=== PATIENT | male | born 1950 | race African-American/Black ===

== ENCOUNTER 2017-01-22 15:46 | Emergency (ER) | payer MEDICARE, OTHER ==
[~2017-01-22] VITALS: Ht 172.7 cm; Wt 63.5 kg
[~2017-01-22 15:46] MED LIST: CIPRO500 MG PO; CIPROFLOXACIN500 M2 ORAL; MACROBID100 MG ORAL; PHENAZOPYRIDIN200 MG ORAL
[2017-01-22 15:49] VITALS: BP 148/81
[2017-01-22] MEDS ORDERED: Ketorolac 60mg Inj IM ONE (16:45)
--- NOTE | 2017-01-22 17:08 | Emergency Room Report ---
History of Present Illness General Chief Complaint: Back Pain-No Injury Source: Patient, Medical Record Present Illness HPI 66 YO Male presents to the ED c/o bilateral lower back pain 8/10 in severity with radiation upward into the bilateral shoulder blade areas x 1 day. pt. reports exacerbation with movement, and light touch. denies recent trauma/fall or spinal procedures. denies fevers, chills, night sweats, or hx of cancer. pt. describes pain as constant, denies midline spinal pain. pt. denies appreciable heavy lifting. denies abdominal pain, MENG, neck pain or stiffness. Denies hematuria, dysuria, or hx of stones. Denies numbness tingling or loss of sensation or gross motor movements of the extremities, incontinence of bowel or bladder. Denies CP, Palpitations, LOC, AMS, dizziness, Changes in Vision, Sensation, paresthesias, or a sudden severe headache. Allergies: Coded Allergies: No Known Allergies (Unverified , 09/02/14) Patient History Past Medical History: see triage record Past Surgical History: none Pertinent Family History: none Immunizations: UTD Reviewed Nursing Documentation: PMH: Agreed, PSxH: Agreed Nursing Documentation-PMH Past Medical History: No History, Except For Hx Dialysis: No - Urinary retention turp 2012 Review of Systems All Other Systems: negative except mentioned in HPI Physical Exam Vital Signs Date Time Temp Pulse Resp B/P (MAP) Pulse Ox O2 Delivery O2 Flow Rate FiO2 01/22/17 15:49 97.3 62 18 148/81 96 Room Air Sp02 EP Interpretation: reviewed, normal General Appearance: no apparent distress, alert, GCS 15, non-toxic Head: normocephalic, atraumatic Eyes: bilateral eye normal inspection, bilateral eye PERRL ENT: hearing grossly normal, normal voice Neck: full range of motion, no bony tend Respiratory: chest non-tender, lungs clear, normal breath sounds, speaking full sentences Cardiovascular #1: regular rate, rhythm Gastrointestinal: non tender, soft Rectal: deferred Genitourinary: normal inspection, no CVA tenderness Musculoskeletal: back normal, gait/station normal, normal range of motion, tender - superficial ttp to the thoracic and lumbar paraspinal muscles, no midline ttp, FROM, no erythema, no spinous process ttp, no obvious deformity, pt. is ambulatory. pt. NVI Neurologic: alert, oriented x3, responsive, motor strength/tone normal, sensory intact, normal gait, speech normal Skin: normal color, no rash, warm/dry, well hydrated Medical Decision Making PA Attestation Dr. Michelle is my supervising Physician whom patient management has been discussed with. Diagnostic Impression: Primary Impression: Back pain Qualified Codes: M54.5 - Low back pain ER Course 66 YO Male presents to the ED c/o bilateral lower back pain 8/10 in severity with radiation upward into the bilateral shoulder blade areas x 1 day. pt. reports exacerbation with movement, and light touch. denies recent trauma/fall or spinal procedures. denies fevers, chills, night sweats, or hx of cancer. pt. describes pain as constant, denies midline spinal pain. pt. denies appreciable heavy lifting. denies abdominal pain, MENG, neck pain or stiffness. Denies hematuria, dysuria, or hx of stones. Denies numbness tingling or loss of sensation or gross motor movements of the extremities, incontinence of bowel or bladder. Denies CP, Palpitations, LOC, AMS, dizziness, Changes in Vision, Sensation, paresthesias, or a sudden severe headache. Ddx considered but are not limited to Fracture, dislocation, contusion, epidural abscess, Sprain/Strain/Spasm, AAA, dissection Vital signs: are WNL, pt. is afebrile H&PE are most consistent with back muscle strain due to superficial TTP illicits his symptoms, and movement exacerbation of his symptoms. I do not suspect acute aortic pathology, or infection at this time. HPI does not suggest stones. ORDERS: none required at this time. ED INTERVENTIONS: -Soma PO -Toradol IM d/w pt. conservative treatment, and to follow up with a primary care provider. pt given a list of primary care clinics for follow up. d/w pt. to return to the ED with worsening or new symptoms. DISCHARGE: At this time pt. is stable for d/c to home. Will provide printed patient care instructions, and any necessary prescriptions. Care plan and follow up instructions have been discussed with the patient prior to discharge. Last Vital Signs Date Time Temp Pulse Resp B/P (MAP) Pulse Ox O2 Delivery O2 Flow Rate FiO2 01/22/17 15:49 97.3 62 18 148/81 96 Room Air Disposition: HOME, SELF-CARE Condition: Stable Scripts Methocarbamol* (ROBAXIN-750*) 750 Mg Tablet 750 MG PO QID, #28 TAB 0 Refills Prov: Ricarda العلي 01/22/17 Ibuprofen* (MOTRIN*) 600 Mg Tablet 600 MG ORAL THREE TIMES A DAY, #20 TAB 0 Refills Prov: Ricarda العلي 01/22/17 Referrals: NOT CHOSEN IPA/MD,REFERRING (PCP) Departure Forms: Return to Work Return to Work Date: Jan 26, 2017 Work Restrictions: No Heavy Lifting, No Prolonged Standing Return to Full Activity: Feb 01, 2017 Patient Instructions: Back Pain, Adult Additional Instructions: Take medications as directed. Follow up with a Primary Care Provider in 3-5 days, even if your symptoms have resolved. --Please review list of primary care clinics, if you do not already have a primary care provider Return sooner to ED if new symptoms occur, or current symptoms become worse. Do not drink alcohol, drive, or operate heavy machinery while taking Muscle Relaxer as this may cause drowsiness. - Please note that this Emergency Department Report was dictated using [employer] carving lathe operator technology software, occasionally this can lead to erroneous entry secondary to interpretation by the dictation equipment. Ricarda العلي Jan 22, 2017 17:08
[2017-01-22] MEDS ORDERED: ROBAXIN-750750 MG PO (17:09)
[2017-01-22] MEDS ORDERED: IBUPROFEN600 MG ORAL (17:09)
[2017-01-22 17:17] VITALS: BP 148/81
== END 2017-01-22 17:34 | disposition home or self-care (01) ==
LOC: EMR 16:30
DX: M54.5 Low back pain (principal)
CPT/HCPCS: 96372; 99284

== ENCOUNTER 2017-02-06 13:12 | Emergency (ER) | payer MEDICARE, OTHER ==
[~2017-02-06] VITALS: Ht 172.7 cm; Wt 63.5 kg
[~2017-02-06 13:12] MED LIST changes: +IBUPROFEN600 MG ORAL; +ROBAXIN-750750 MG PO
[2017-02-06] MEDS ORDERED: VENTOLIN HFA18 GM INH (13:32)
[2017-02-06] MEDS ORDERED: SPIRIVA18 MCG INH (13:32)
[2017-02-06] MEDS ORDERED: Isentress 400mg tab ORAL SCH (13:45)
--- NOTE | 2017-02-06 13:50 | Emergency Room Report ---
History of Present Illness General Chief Complaint: General Complaint Source: Patient (CARLOZ DEAN) Present Illness HPI The patient is a 66 old male presenting for needle stick. He states that he was taking out trash at a homeless detention in [place] when he felt a sharp sensation to the right middle finger. The patient states that he was wearing gloves. He took off the gloves and did not see any blood or redness to the finger. He washed the area with soap and water. This occurred at approximately 5:30 AM this morning. He denies any current pain or other symptoms. He is concerned about gomez hepatitis and HIV due to this being a high risk detention. (CARLOZ DEAN) Allergies: Coded Allergies: No Known Allergies (Unverified , 09/02/14) Patient History Past Medical History: see triage record Pertinent Family History: none Reviewed Nursing Documentation: PMH: Agreed, PSxH: Agreed (CARLOZ DEAN) Nursing Documentation-PMH Hx COPD: Yes Hx Dialysis: No - Urinary retention turp 2011 (CARLOZ DEAN) Review of Systems All Other Systems: negative except mentioned in HPI (CARLOZ DEAN) Physical Exam Vital Signs Date Time Temp Pulse Resp B/P (MAP) Pulse Ox O2 Delivery O2 Flow Rate FiO2 02/06/17 13:19 78.1 78 16 122/79 97 Room Air Sp02 EP Interpretation: reviewed, normal General Appearance: no apparent distress, alert, GCS 15, non-toxic Head: normocephalic, atraumatic Eyes: bilateral eye normal inspection, bilateral eye PERRL ENT: hearing grossly normal, normal pharynx, no angioedema, normal voice Neck: full range of motion, supple/symm/no masses Respiratory: chest non-tender, lungs clear, normal breath sounds, speaking full sentences Cardiovascular #1: normal peripheral pulses, no edema, no murmur, no rub, bradycardia Musculoskeletal: back normal, gait/station normal, normal range of motion, non- tender Neurologic: alert, oriented x3, responsive, motor strength/tone normal, sensory intact, speech normal Psychiatric: judgement/insight normal, memory normal, mood/affect normal, no suicidal/homicidal ideation Skin: normal color, no rash, warm/dry, well hydrated, other - Right 3rd digit: No visible injury. Non tender Lymphatic: no adenopathy (CARLOZ DEAN) Medical Decision Making [place] Attestation Dr. Michelle is my supervising physician. Patient management was discussed with my supervising physician (CARLOZ DEAN) Medicare Attestation Nadege Borrero MD hereby attest that the medical record entry accurately reflects signatures/notations that I made in my capacity as MD when I treated/ diagnosed the above listed Medicare beneficiary. I attest that this information is true, accurate and complete to the best of my knowledge. I understand that any falsification, omission, or concealment of material fact may subject me to administrative, civil, or criminal liability. This patient warrants hospital admission for extreme of age and has a condition that cannot be treated as outpatient. (Nadege Jones M.D.) Diagnostic Impression: Primary Impression: Needle stick injury ER Course The patient is a 66 old male presenting for needle stick. Differential diagnosis considered not limited to: Puncture wound, HIV exposure, hepatitis exposure, cellulitis, among others Upon having standard labs drawn for needle stick protocol, the patient has become bradycardic and somewhat unresponsive. This lasted for approximately 3 minutes. He was placed on a monitored bed at that point. Physical exam: The patient is bradycardic ranging from the mid 40s to mid 50s. Hypotensive during the brief period of unresponsiveness. Cardiac: The patient is bradycardic. No MRG. Distal pulses 2+ Lungs are clear to auscultation bilaterally Abdomen is soft and nontender Skin is warm and dry All labs are unremarkable. No anemia. No hypoglycemia. No electrolyte abnormality. Cardiac markers essentially negative EKG shows sinus bradycardia. Chest x-ray unremarkable The patient is given IV fluids and time to rest. He is feeling significantly better. He is alert and oriented x3 at this time. He is given food and drink and is monitored. After it is established that the patient is stable, he is discharged home and will be prophylactically treated per needle stick protocol. He needs to followup with his primary doctor within 3 days. ER precautions are given Laboratory Tests Test 02/06/17 14:12 White Blood Count 8.1 K/UL (4.8-10.8) Red Blood Count 4.62 M/UL (4.70-6.10) L Hemoglobin 14.8 G/DL (14.2-18.0) Hematocrit 44.9 % (42.0-52.0) Mean Corpuscular Volume 97 FL (80-99) Mean Corpuscular Hemoglobin 32.1 PG (27.0-31.0) H Mean Corpuscular Hemoglobin Concent 33.0 G/DL (32.0-36.0) Red Cell Distribution Width 12.1 % (11.6-14.8) Platelet Count 203 K/UL (150-450) Mean Platelet Volume 7.1 FL (6.5-10.1) Neutrophils (%) (Auto) 60.3 % (45.0-75.0) Lymphocytes (%) (Auto) 28.3 % (20.0-45.0) Monocytes (%) (Auto) 8.4 % (1.0-10.0) Eosinophils (%) (Auto) 1.8 % (0.0-3.0) Basophils (%) (Auto) 1.2 % (0.0-2.0) Sodium Level 140 MMOL/L (136-145) Potassium Level 3.9 MMOL/L (3.5-5.1) Chloride Level 106 MMOL/L (98-107) Carbon Dioxide Level 27 MMOL/L (21-32) Anion Gap 7 mmol/L (5-15) Blood Urea Nitrogen 15 mg/dL (7-18) Creatinine 1.3 MG/DL (0.55-1.30) Estimate Glomerular Filtration Rate > 60 mL/min (>60) Glucose Level 114 MG/DL (74-106) H Calcium Level 9.0 MG/DL (8.5-10.1) Phosphorus Level 2.9 MG/DL (2.5-4.9) Total Bilirubin 0.3 MG/DL (0.2-1.0) Direct Bilirubin < 0.1 MG/DL (0.0-0.3) Aspartate Amino Transferase (AST) 13 U/L (15-37) L Alanine Aminotransferase (ALT) 15 U/L (12-78) Alkaline Phosphatase 71 U/L (46-116) Total Creatine Kinase 191 U/L (26-308) Creatine Kinase MB 2.1 NG/ML (0.0-3.6) Creatine Kinase MB Relative Index 1.0 Troponin I 0.000 ng/mL (0.000-0.056) Total Protein 7.3 G/DL (6.4-8.2) Albumin 3.8 G/DL (3.4-5.0) Globulin 3.5 g/dL Albumin/Globulin Ratio 1.1 (1.0-2.7) Hepatitis B Surface Antibody Pending Hepatitis C Antibody Pending HIV (1&2) Antibody Rapid Negative (NEGATIVE) Lab Results Impression All labs are unremarkable. No anemia. No hypoglycemia. No electrolyte abnormality. Cardiac markers essentially negative (CARLOZ DEAN P.A.) EKG Diagnostic Results EP Interpretation: Sinus bradycardia Rate: bradycardiac - 45 ST Segments: no acute changes ASA given to the pt in ED: No PA Scribe Text EKG was reviewed and read with my supervising physician. No acute ST segment changes are seen. Normal rate and rhythm. No acute changes. (CARLOZ DEAN P.A.) Chest X-Ray Diagnostic Results Chest X-Ray Diagnostic Results : Chest X-Ray Ordered: Yes # of Views/Limited/Complete: 1 View Indication: Other - syncope EP Interpretation: Yes PA Xray: Interpretation reviewed, by supervising MD, and agrees with findings. Interpretation: no consolidation, no effusion, no pneumothorax, no acute cardiopulmonary disease Impression: No acute disease Electronically Signed by: Carloz Dean PA-C (CARLOZ DEAN PFrancoiseAFrancoise) Last Vital Signs Date Time Temp Pulse Resp B/P (MAP) Pulse Ox O2 Delivery O2 Flow Rate FiO2 02/06/17 13:19 78.1 78 16 122/79 97 Room Air Status: improved (CARLOZ DEAN P.A.) Disposition: HOME, SELF-CARE Condition: Improved Scripts Emtricitabine/Tenofovir 200-300MG* (TRUVADA 200-300MG*) 1 Each Tablet 1 TAB ORAL DAILY, #2 TAB Prov: CARLOZ DEAN P.A. 02/06/17 Raltegravir (Isentress) 400 Mg Tablet 400 MG ORAL EVERY 12 HOURS, #5 TAB Prov: JENNIEANSARITHAY P.A. 02/06/17 CARLOZ DEAN P.A. Feb 06, 2017 13:50 Nadege Jones M.D. Feb 16, 2017 03:06
[2017-02-06 14:00] VITALS: BP 92/50
[2017-02-06 14:25] LABS: BASOPHILS % (AUTO) 1.2 % (0.0-2.0); EOSINOPHILS % (AUTO) 1.8 % (0.0-3.0); LYMPHOCYTES % (AUTO) 28.3 % (20.0-45.0); MEAN CORPUSCULAR HEMOGLOBIN 32.1 PG (27.0-31.0); MEAN CORPUSCULAR VOLUME 97 FL (80-99); MEAN PLATELET VOLUME 7.1 FL (6.5-10.1); MONOCYTES % (AUTO) 8.4 % (1.0-10.0); NEUTROPHILS % (AUTO) 60.3 % (45.0-75.0); PLATELET COUNT 203 K/UL (150-450); RED BLOOD COUNT 4.62 M/UL (4.70-6.10); RED CELL DISTRIBUTION WIDTH 12.1 % (11.6-14.8); WHITE BLOOD COUNT 8.1 K/UL (4.8-10.8)
[2017-02-06 14:35] LABS: ANION GAP 7 mmol/L (5-15); CARBON DIOXIDE 27 MMOL/L (21-32); CHLORIDE 106 MMOL/L (98-107); CREATININE 1.3 MG/DL (0.55-1.30); GLOMERULAR FILTRATION RATE > 60 mL/min (>60); POTASSIUM 3.9 MMOL/L (3.5-5.1); SODIUM 140 MMOL/L (136-145)
[2017-02-06 14:39] LABS: ALANINE AMINOTRANSFERASE 15 U/L (12-78); ALBUMIN/GLOBULIN RATIO 1.1 (1.0-2.7); ASPARTATE AMINO TRANSFERASE 13 U/L (15-37); BILIRUBIN,DIRECT < 0.1 MG/DL (0.0-0.3); PHOSPHORUS 2.9 MG/DL (2.5-4.9); TOTAL PROTEIN 7.3 G/DL (6.4-8.2)
[2017-02-06 14:51] LABS: CKMB 2.1 NG/ML (0.0-3.6)
[2017-02-06 15:20] VITALS: BP 127/74
[2017-02-06] MEDS ORDERED: ISENTRESS400 MG ORAL (15:23)
[2017-02-06] MEDS ORDERED: TRUVADA 200 MG1 EAC1 ORAL (15:23)
--- NOTE | 2017-02-07 08:41 | Diagnostic Imaging Report ---
Indication: SYNCOPE Technique: One view of the chest Comparison: none Findings: Lungs and pleural spaces are clear. Heart size is normal Impression: No acute process
--- NOTE | 2017-02-07 18:37 | Cardiology Report ---
APPROVED REPORT EKG Measurement Heart [id number] Sinus bradycardia Cannot rule out Anterior infarct, age undetermined Abnormal ECG
== END 2017-02-06 15:25 | disposition home or self-care (01) ==
LOC: EMR 13:30
DX: S60.442A External constriction of right middle finger, initial encounter (principal); W46.0XXA Contact with hypodermic needle, initial encounter; Y92.099 Unspecified place in other non-institutional residence as the place of occurrence of the external cause; Y99.0 Civilian activity done for income or pay
CPT/HCPCS: 36415; 71010; 80053; 80069; 80076; 82550; 82553; 82962; 84484; 85025; 86703; 86803; 87517; 93005; 96360; 99284

== ENCOUNTER 2017-05-13 15:54 | Emergency (ER) | payer OTHER, MEDICARE ==
[~2017-05-13] VITALS: Ht 172.7 cm; Wt 63.5 kg
[~2017-05-13 15:54] MED LIST changes: +ISENTRESS400 MG ORAL; +SPIRIVA18 MCG INH; +TRUVADA 200 MG1 EAC1 ORAL; +VENTOLIN HFA18 GM INH
--- NOTE | 2017-05-13 16:12 | Emergency Room Report ---
History of Present Illness General Chief Complaint: Upper Respiratory Illness Source: Patient, Medical Record Present Illness HPI 66 YO Male Presents to the ED c/O Cough, N/V/ Diarrhea x 3 days. subjective fevers and chills. denies blood in vomit of stool. reports 2 episodes of vomiting initially then loose stools. Reports hx of Emphysema and requests refill of Spiriva. Denies recent abx use. denies SOB, lower extremity edema, or productive cough. 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 Denies pain. Denies sore throat, ear pain, high fevers, lethargy, neck pain/stiffness, irritability, photophobia dehydration, N/V/D. Denies Cp, Palpitations, LOC, AMS, seizures, paresthesias, or changes in Hearing or vision, no Sudden severe MENG. Allergies: Coded Allergies: No Known Allergies (Unverified , 09/02/14) Patient History Past Medical History: see triage record Past Surgical History: none Pertinent Family History: none Immunizations: UTD Reviewed Nursing Documentation: PMH: Agreed, PSxH: Agreed Nursing Documentation-PMH Past Medical History: No History, Except For Hx COPD: Yes Hx Dialysis: No - Urinary retention turp 2012 Review of Systems All Other Systems: negative except mentioned in HPI Physical Exam Vital Signs Date Time Temp Pulse Resp B/P (MAP) Pulse Ox O2 Delivery O2 Flow Rate FiO2 05/13/17 15:59 98.5 71 18 134/78 97 Room Air 98.4 Sp02 EP Interpretation: reviewed, normal General Appearance: no apparent distress, alert, GCS 15, non-toxic Head: normocephalic, atraumatic ENT: hearing grossly normal, normal voice Neck: full range of motion Respiratory: chest non-tender, lungs clear, normal breath sounds, no rhonchi, no respiratory distress, no accessory muscle use, no wheezing, speaking full sentences Cardiovascular #1: regular rate, rhythm, no edema, normal capillary refill Gastrointestinal: normal bowel sounds, non tender, soft Rectal: deferred Genitourinary: normal inspection, no CVA tenderness Musculoskeletal: back normal, gait/station normal, normal range of motion, non- tender Neurologic: alert, oriented x3, responsive, motor strength/tone normal, sensory intact, speech normal, grossly normal Psychiatric: judgement/insight normal Skin: normal color, no rash, warm/dry, well hydrated Lymphatic: no adenopathy Medical Decision Making PA Attestation Dr. Hernández is my supervising Physician whom patient management has been discussed with. Diagnostic Impression: Primary Impression: Bronchitis Additional Impression: Vomiting and diarrhea ER Course 66 YO Male Presents to the ED c/O Cough, N/V/ Diarrhea x 3 days. subjective fevers and chills. denies blood in vomit of stool. reports 2 episodes of vomiting initially then loose stools. Reports hx of Emphysema and requests refill of Spiriva. Denies recent abx use. denies SOB, lower extremity edema, or productive cough. 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 Denies pain. Denies sore throat, ear pain, high fevers, lethargy, neck pain/stiffness, irritability, photophobia dehydration, N/V/D. Denies Cp, Palpitations, LOC, AMS, seizures, paresthesias, or changes in Hearing or vision, no Sudden severe MENG. Ddx considered but are not limited to URI, pneumonia, PE, strep pharyngitis, meningitis, Viral GE, dehydration Vital signs: Pt. is afebrile, the remaining VS are WNL H&PE are most consistent with URI- no meningeal signs, oropharynx is not involved, no evidence of bacterial infection at this time. ORDERS: none required at this time, the diagnosis is clinical ED INTERVENTIONS: None required at this time. DISCHARGE: At this time pt. is stable for d/c to home. Will provide printed patient care instructions, and any necessary prescriptions. Care plan and follow up instructions have been discussed with the patient prior to discharge. Last Vital Signs Date Time Temp Pulse Resp B/P (MAP) Pulse Ox O2 Delivery O2 Flow Rate FiO2 05/13/17 15:59 98.5 71 18 134/78 97 Room Air 98.4 Disposition: HOME, SELF-CARE Condition: Stable Scripts Dicyclomine Hcl* (DICYCLOMINE HCL*) 10 Mg Capsule 10 MG PO TID, #5 CAP Prov: Ricarda العلي P.Barb. 05/13/17 Ondansetron Odt* (ZOFRAN ODT*) 4 Mg Tab.rapdis 4 MG ORAL Q6H Y for Nausea & Vomiting, #10 TAB Prov: Ricarda العلي 05/13/17 Tiotropium [place]* (SPIRIVA*) 18 Mcg Cap.w.dev 1 PUFF INH DAILY, #1 EA Prov: Ricarda العلي 05/13/17 Codeine/Promethazine Hcl* (PROMETHAZINE-CODEINE SYRUP*) 118 Ml Syrup 5 ML ORAL Q6H Y for For Cough, #120 ML 0 Refills Prov: Ricarda العلي 05/13/17 Patient Instructions: Upper Respiratory Infection, Adult Additional Instructions: Take medications as directed. Follow up with a Primary Care Provider in 3-5 days, even if your symptoms have resolved. --Please review list of primary care clinics, if you do not already have a primary care provider Return sooner to ED if new symptoms occur, or current symptoms become worse. Do not drink alcohol, drive, or operate heavy machinery while taking Cough as this may cause drowsiness. - Please note that this Emergency Department Report was dictated using [employer] set up technology software, occasionally this can lead to erroneous entry secondary to interpretation by the dictation equipment. Ricarda العلي May 13, 2017 16:11
[2017-05-13] MEDS ORDERED: SPIRIVA18 MCG INH (16:37)
[2017-05-13] MEDS ORDERED: ZOFRAN ODT4 MG ORAL (16:37)
[2017-05-13] MEDS ORDERED: DICYCLOMINE HCL10 MG PO (16:37)
[2017-05-13] MEDS ORDERED: PROMETHAZINE-C118 M1 ORAL (16:37)
[2017-05-13 16:40] VITALS: BP 134/78
[2017-05-13 17:16] VITALS: BP 134/78
== END 2017-05-13 17:00 | disposition home or self-care (01) ==
LOC: EMR 16:30
DX: J40 Bronchitis, not specified as acute or chronic (principal); R19.7 Diarrhea, unspecified; R11.10 Vomiting, unspecified; J44.9 Chronic obstructive pulmonary disease, unspecified
CPT/HCPCS: 99284

== ENCOUNTER 2018-10-19 14:18 | Emergency (ER) | payer OTHER, MEDICARE ==
[~2018-10-19] VITALS: Ht 177.8 cm; Wt 63.5 kg
[~2018-10-19 14:18] MED LIST changes: +DICYCLOMINE HCL10 MG PO; +PROMETHAZINE-C118 M1 ORAL; +ZOFRAN ODT4 MG ORAL
[2018-10-19] MEDS ORDERED: UNOBMED (14:28)
--- NOTE | 2018-10-19 14:33 | NUR ---
ED Nurse Note: Pt from home came in due to Nausea, vomiting and diarrhea since last night. Pt also noted to be weak and sluggish. Per family member, pt had one episode of vomiting before going here. AAO x4, ambulates with assistance. Follows commands with no respiratory distress.
[2018-10-19 14:45] VITALS: BP 128/59
--- NOTE | 2018-10-19 14:53 | Emergency Room Report ---
History of Present Illness General Chief Complaint: Nausea, Vomiting, and Diarrhea Source: Patient Present Illness HPI Patient is a 67-year-old male presents after increased generalized weakness with associated nausea vomiting and diarrhea. Patient had been having associated chills. He reportedly had been vomiting multiple times. He had reportedly been having some diarrheal episodes. patient reportedly had been working last night and had been more somnolent since driving to the hospital. Allergies: Coded Allergies: No Known Allergies (Unverified , 09/02/14) Patient History Reviewed Nursing Documentation: PMH: Agreed; PSxH: Agreed Nursing Documentation-PMH Past Medical History: No History, Except For Hx COPD: Yes Hx Dialysis: No - Urinary retention turp 2011 Physical Exam Vital Signs Date Time Temp Pulse Resp B/P (MAP) Pulse Ox O2 Delivery O2 Flow Rate FiO2 10/19/18 14:23 99.7 93 18 121/67 (85) 95 Room Air Sp02 EP Interpretation: reviewed, normal General Appearance: normal inspection, alert, GCS 15, Chronically Ill Head: atraumatic ENT: normal ENT inspection, hearing grossly normal, normal voice Neck: normal inspection, full range of motion, supple, no bony tend Respiratory: normal inspection, normal breath sounds, no respiratory distress, no retraction, wheezing Cardiovascular #1: regular rate, rhythm, no edema Gastrointestinal: normal inspection, normal bowel sounds, non tender, soft, no guarding, no hernia Genitourinary: no CVA tenderness Musculoskeletal: normal inspection, back normal, normal range of motion Neurologic: normal inspection, alert, oriented x3, responsive, 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 Differential diagnosis include was not limited to gastroenteritis, myocardial infarction, CVA, myocarditis among others. Because of complexity of patient's case laboratory testing and imaging studies were ordered. Patient was noted to have some prior history of COPD. He initially was fairly lethargic.Patient was noted to have increased chest discomfort as well as headache. CT the head read by radiology showed no evidence of acute intracranial pathology. CT of the chest was ordered after d-dimer was positive.Patient was discussed with Dr. Lala at [facility] case #[id number]. After discussion with CT of the chest was performed which showed some evidence of left-sided infiltrate and emphysematous changes.Patient be transferred to [facility] for further evaluation and treatment. Labs Test 10/19/18 15:00 10/19/18 15:15 10/19/18 15:20 10/19/18 15:30 White Blood Count 14.5 K/UL (4.8-10.8) Red Blood Count 4.43 M/UL (4.70-6.10) Hemoglobin 14.2 G/DL (14.2-18.0) Hematocrit 42.7 % (42.0-52.0) Mean Corpuscular Volume 96 FL (80-99) Mean Corpuscular Hemoglobin 32.0 PG (27.0-31.0) Mean Corpuscular Hemoglobin Concent 33.1 G/DL (32.0-36.0) Red Cell Distribution Width 12.5 % (11.6-14.8) Platelet Count 176 K/UL (150-450) Mean Platelet Volume 6.3 FL (6.5-10.1) Neutrophils (%) (Auto) % (45.0-75.0) Lymphocytes (%) (Auto) % (20.0-45.0) Monocytes (%) (Auto) % (1.0-10.0) Eosinophils (%) (Auto) % (0.0-3.0) Basophils (%) (Auto) % (0.0-2.0) Sodium Level 136 MMOL/L (136-145) Potassium Level 3.7 MMOL/L (3.5-5.1) Chloride Level 104 MMOL/L (98-107) Carbon Dioxide Level 25 MMOL/L (21-32) Anion Gap 7 mmol/L (5-15) Blood Urea Nitrogen 11 mg/dL (7-18) Creatinine 1.3 MG/DL (0.55-1.30) Estimat Glomerular Filtration Rate > 60 mL/min (>60) Glucose Level 101 MG/DL (74-106) Calcium Level 9.1 MG/DL (8.5-10.1) Total Bilirubin 1.2 MG/DL (0.2-1.0) Direct Bilirubin 0.2 MG/DL (0.0-0.3) Aspartate Amino Transf (AST/SGOT) 13 U/L (15-37) Alanine Aminotransferase (ALT/SGPT) 12 U/L (12-78) Alkaline Phosphatase 68 U/L (46-116) Troponin I 0.000 ng/mL (0.000-0.056) Total Protein 6.9 G/DL (6.4-8.2) Albumin 3.5 G/DL (3.4-5.0) Globulin 3.4 g/dL Albumin/Globulin Ratio 1.0 (1.0-2.7) Lipase 56 U/L (73-393) Salicylates Level < 0.2 ug/mL (2.8-20) Acetaminophen Level < 2 MCG/ML (10-30) Urine Color Pale yellow Urine Appearance Clear Urine pH 8 (4.5-8.0) Urine Specific [place] 1.010 (1.005-1.035) Urine Protein Negative (NEGATIVE) Urine Glucose (UA) Negative (NEGATIVE) Urine Ketones 2+ (NEGATIVE) Urine Blood 1+ (NEGATIVE) Urine Nitrite Positive (NEGATIVE) Urine Bilirubin Negative (NEGATIVE) Urine Urobilinogen Normal MG/DL (0.0-1.0) Urine Leukocyte Esterase 2+ (NEGATIVE) Urine RBC 0-2 /HPF (0 - 0) Urine WBC 2-4 /HPF (0 - 0) Urine Squamous Epithelial Cells None /LPF (NONE/OCC) Urine Bacteria Few /HPF (NONE) Urine Opiates Screen Negative (NEGATIVE) Urine Barbiturates Screen Negative (NEGATIVE) Phencyclidine (PCP) Screen Negative (NEGATIVE) Urine Amphetamines Screen Negative (NEGATIVE) Urine Benzodiazepines Screen Negative (NEGATIVE) Urine Cocaine Screen Negative (NEGATIVE) Urine Marijuana (THC) Screen Negative (NEGATIVE) Lactic Acid Level 1.30 mmol/L (0.4-2.0) EKG Diagnostic Results Rate: normal Rhythm: NSR ST Segments: other - diffuse twave inversions Rhythm Strip Diag. Results EP Interpretation: yes Rhythm: NSR, no PVC's Last Vital Signs Date Time Temp Pulse Resp B/P (MAP) Pulse Ox O2 Delivery O2 Flow Rate FiO2 10/19/18 14:23 99.7 93 18 121/67 (85) 95 Room Air Status: unchanged Disposition: ADMITTED INPATIENT Condition: Stable Jorge Hernández MD Oct 19, 2018 14:53
--- NOTE | 2018-10-19 15:08 | NUR ---
ED Nurse Note: Collected blood specimen then sent.
--- NOTE | 2018-10-19 15:21 | NUR ---
ED Nurse Note: Urine specimen then sent.
[2018-10-19 15:28] LABS: HEMATOCRIT 42.7 % (42.0-52.0); HEMOGLOBIN 14.2 G/DL (14.2-18.0); MEAN CORPUSCULAR VOLUME 96 FL (80-99); PLATELET COUNT 176 K/UL (150-450); RED BLOOD COUNT 4.43 M/UL (4.70-6.10); RED CELL DISTRIBUTION WIDTH 12.5 % (11.6-14.8); WHITE BLOOD COUNT 14.5 K/UL (4.8-10.8)
--- NOTE | 2018-10-19 15:31 | NUR ---
ED Nurse Note: Collected lactic acid specimen and sent.
[2018-10-19 15:32] LABS: ANION GAP 7 mmol/L (5-15); BLOOD UREA NITROGEN 11 mg/dL (7-18); CALCIUM 9.1 MG/DL (8.5-10.1); CARBON DIOXIDE 25 MMOL/L (21-32); CHLORIDE 104 MMOL/L (98-107); CREATININE 1.3 MG/DL (0.55-1.30); POTASSIUM 3.7 MMOL/L (3.5-5.1); SODIUM 136 MMOL/L (136-145)
--- NOTE | 2018-10-19 15:33 | NUR ---
ED Nurse Note: Pt resports headcahe of 08/14. Dr Hernández notified and will order CT head.
[2018-10-19 15:43] LABS: ALANINE AMINOTRANSFERASE 12 U/L (12-78); ALBUMIN 3.5 G/DL (3.4-5.0); ALKALINE PHOSPHATASE 68 U/L (46-116); ASPARTATE AMINO TRANSFERASE 13 U/L (15-37); BILIRUBIN,TOTAL 1.2 MG/DL (0.2-1.0)
[2018-10-19 15:45] LABS: BILIRUBIN,DIRECT 0.2 MG/DL (0.0-0.3)
--- NOTE | 2018-10-19 15:45 | NUR ---
ED Nurse Note: Pt taken to CT.
[2018-10-19 15:46] LABS: APPEARANCE,URINE CLEAR; BILIRUBIN, URINE NEGATIVE (NEGATIVE); COLOR,URINE PALE YELLOW; GLUCOSE, URINE (UA) NEGATIVE (NEGATIVE); KETONES,URINE 2+ (NEGATIVE); LEUKOCYTE ESTERASE ,URINE 2+ (NEGATIVE); NITRITE,URINE POSITIVE (NEGATIVE); PH,URINE 8 (4.5-8.0); PROTEIN,URINE NEGATIVE (NEGATIVE); UROBILINOGEN,URINE NORMAL MG/DL (0.0-1.0)
--- NOTE | 2018-10-19 15:52 | NUR ---
ED Nurse Note: Pt came back from CT.
[2018-10-19] MEDS ORDERED: cefTRIAXone 1 GM in NS 55 ML IVPB ONE (16:15)
--- NOTE | 2018-10-19 16:24 | Diagnostic Imaging Report ---
Indications: Dizziness, headache Technique: Spiral acquisitions obtained through the brain. Angled axial and coronal 5 x 5 mm slices were reconstructed. Total dose length product 1333.86 mGycm. CTDI vol(s) 70.38 mGy. Dose reduction achieved using automated exposure control Comparison: None. Findings: No acute intracranial hemorrhage or edema. No mass effect nor midline shift. Normal vela-white differentiation. Normal size ventricles and extra axial CSF spaces. Visualized orbits and sinuses are unremarkable. The mastoids are clear. The calvarium is intact Impression: Negative The CT scanner at [facility] is accredited by the [employer] and the scans are performed using protocols designed to limit radiation exposure to as low as reasonably achievable to attain images of sufficient resolution adequate for diagnostic evaluation.
[2018-10-19] MEDS: Nitroglycerin Subl 0.4mg tab SL PRN ×3 (16:31→16:47)
[2018-10-19 16:40] VITALS: BP 108/71
--- NOTE | 2018-10-19 16:43 | NUR ---
ED Nurse Note: and pt are aware of hospital admission. took pt's valuables with her.
--- NOTE | 2018-10-19 16:50 | NUR ---
ED Nurse Note: Called RT for breathing treatment.
[2018-10-19] MEDS ORDERED: Albuterol/Ipratropium 3ml neb HHN ONE (17:00)
[2018-10-19] MEDS ORDERED: Isovue-370 150ml vial INJ PRN (17:00)
[2018-10-19] MEDS ORDERED: Azithromycin 500 MG in D5W 275 ML IVPB ONE (17:45)
--- NOTE | 2018-10-19 17:59 | Diagnostic Imaging Report ---
ndication: Shortness of breath and cough Technique: IV administration nonionic contrast. Spiral acquisitions obtained from the lung bases to the lung apices. Multiplanar and 3-D reconstructions were generated. Total dose length product 676.93 mGycm. CTDIvol(s) 16.93 mGy. Dose reduction achieved using automated exposure control Comparison: none Findings: There is some image degradation due to motion artifact. There is good quality opacification of the pulmonary arteries. No intraluminal filling defects or other findings to suggest acute pulmonary embolus are demonstrated. Normal caliber pulmonary arteries. Lungs are diffusely hyperinflated, consistent with COPD, and there are a few small bullae scattered throughout the lungs bilaterally. There are areas of interstitial and alveolar opacity in the left upper lobe and right lower lobe and to a slight extent the left lower lobe. Appears of these is suggestive of honeycombing related to chronic fibrosis, but these could represent acute infiltrate or combination of both as well No definite infiltrates, effusions, masses, nodules, or congestion demonstrated. The esophagus is dilated with gas. No definite downstream obstructing lesion is demonstrated. There is a small sliding-type hiatal hernia demonstrated. The heart size is normal. No pericardial effusion. No mediastinal or hilar mass or adenopathy. The thyroid is diffusely heterogeneous. No axillary or chest wall mass or adenopathy. The bones demonstrate degenerative spondylosis changes. The included upper abdominal anatomy is unremarkable. Impression: Negative for evidence of acute pulmonary embolus or other acute thoracic vascular pathology Bilateral parenchymal opacities. Suspect on the basis of chronic fibrotic change, but these could also represent acute infiltrate COPD This agrees with the preliminary interpretation provided overnight by [facility] teleradiology service. The CT scanner at [facility] is accredited by the [employer] and the scans are performed using protocols designed to limit radiation exposure to as low as reasonably achievable to attain images of sufficient resolution adequate for diagnostic evaluation.
[2018-10-19 18:51] VITALS: BP 103/54
[2018-10-19 20:27] VITALS: BP 114/59
--- NOTE | 2018-10-19 20:36 | NUR ---
ED Nurse Note: Report given to Mahogany MADRIGAL of [facility].
[2018-10-19 21:20] VITALS: BP 114/59
--- NOTE | 2018-10-19 21:20 | NUR ---
ED Nurse Note: Report given to [facility]. Pt transferred via gurney with all belongings sent with him. Pt is stable for transfer.
--- NOTE | 2018-10-21 14:50 | Cardiology Report ---
APPROVED REPORT EKG Measurement Heart [id number] Normal sinus rhythm Septal infarct, age undetermined Abnormal ECG
--- NOTE | 2018-10-21 14:52 | Cardiology Report ---
APPROVED REPORT EKG Measurement Heart [id number] 158P72 [id number] Normal sinus rhythm Septal infarct, age undetermined T wave abnormality, consider inferolateral ischemia Abnormal ECG
== END 2018-10-19 21:20 | disposition short-term general hospital (02) ==
LOC: EMR 15:39
DX: R11.10 Vomiting, unspecified (principal); E86.0 Dehydration; R53.1 Weakness; R94.31 Abnormal electrocardiogram [ECG] [EKG]; R19.7 Diarrhea, unspecified; J44.9 Chronic obstructive pulmonary disease, unspecified
CPT/HCPCS: 36415; 70450; 71275; 80053; 80307; 81003; 82248; 83605; 83690; 84484; 85007; 85025; 85379; 87040; 93005; 94640; 94664; 96361; 96365; 96367; 96375; 99285; G0480; J0456; J0696; J2405; Q9967; 80329; J7620